=== PATIENT | male | born 1950 | race African-American/Black ===

== ENCOUNTER 2020-12-24 00:02 | Emergency (ER) | payer OTHER ==
[~2020-12-24] VITALS: Ht 172.7 cm; Wt 83.0 kg
[2020-12-24] MEDS ORDERED: cefTRIAXone SOD 1,000 MG VL IM ONE (01:30)
[2020-12-24 02:36] VITALS: BP 127/81
== END 2020-12-24 02:45 | disposition home or self-care (01) ==
LOC: ER 00:02
DX: J06.9 Acute upper respiratory infection, unspecified (principal); R05.9 Cough, unspecified; R09.81 Nasal congestion; E11.9 Type 2 diabetes mellitus without complications; I10 Essential (primary) hypertension; Z20.822 Contact with and (suspected) exposure to COVID-19
CPT/HCPCS: 36415; 71045; 87426; 96372; 99284; J0696

== ENCOUNTER 2023-01-10 03:54 | Emergency (ER) | payer OTHER ==
[~2023-01-10] VITALS: Ht 172.7 cm; Wt 82.5 kg
[2023-01-10] MEDS ORDERED: ALBUTEROL MEDNEB 2.5 mg/3ml NEB NEB ONE (04:30)
[2023-01-10] MEDS ORDERED: DexAMETHasone 4 MG TAB PO ONE (04:30)
[2023-01-10] MEDS ORDERED: IPRATROPIUM BROM 0.5 MG/2.5ML INH SOL NEB ONE (04:30)
[2023-01-10] MEDS ORDERED: guaiFENesin-CODEINE Liq 5 ML UD PO ONE (04:30)
[2023-01-10] MEDS ORDERED: GUAI100S6 PO (04:32)
[2023-01-10] MEDS ORDERED: DEXT1SYP9 PO (04:36)
[2023-01-10] MEDS ORDERED: PROMETHAZINE W/CODEINE 5 ML ORAL SYRUP PO ONE (04:45)
[2023-01-10 06:21] VITALS: BP 134/84; PULSE 89; RESP 20; O2SAT 98
== END 2023-01-10 06:30 | disposition home or self-care (01) ==
LOC: ER 03:54
DX: J20.9 Acute bronchitis, unspecified (principal); R06.02 Shortness of breath; F17.210 Nicotine dependence, cigarettes, uncomplicated; I10 Essential (primary) hypertension; E11.9 Type 2 diabetes mellitus without complications; R07.89 Other chest pain
CPT/HCPCS: 71045; 94640; 99283; J7644; J8540